=== PATIENT | female | born 1960 | race Hispanic/Latino ===

== ENCOUNTER 2020-06-15 15:42 | Emergency (ER) | payer OTHER ==
[2020-06-15 16:03] VITALS: BP 167/92
--- NOTE | 2020-06-15 16:35 | Event Note ---
ED Screening Note Date of service: 06/15/20 Time: 16:34 ED Screening Note: Patient complains of tremors and allover shakiness x2 days She reports she believes is due to her increase in Wellbutrin from 100 mg to 200 mg which was increased 1 week ago She denies other symptoms This initial assessment/diagnostic orders/clinical plan/treatment(s) is/are subject to change based on patients health status, clinical progression and re- assessment by fellow clinical providers in the ED. Further treatment and workup at subsequent clinical providers discretion. Patient/guardian urged not to elope from the ED as their condition may be serious if not clinically assessed and m anaged. Initial orders include: Labs
[2020-06-15 16:44] LABS: Basophils % (Auto) 0.5 % (0.0-1.8); Eosinophils # (Auto) 0.1 K/mm3 (0.0-0.4); Eosinophils % (Auto) 0.7 % (0.0-4.3); Hemoglobin 12.8 gm/dl (10.1-14.3); Lymphocytes # (Auto) 1.2 K/mm3 (1.2-5.4); Lymphocytes % (Auto) 15.2 % (13.4-35.0); Mean Corpuscular HGB Conc 34 % (30-34); Mean Corpuscular Volume 77 fl (79-97); Monocytes # (Auto) 0.7 K/mm3 (0.0-0.8); Monocytes % (Auto) 9.4 % (0.0-7.3); Platelet Count 383 K/mm3 (140-440); Red Blood Count 4.93 M/mm3 (3.65-5.03); Red Cell Distribution Width 15.9 % (13.2-15.2)
[2020-06-15 17:07] LABS: Albumin 4.8 g/dL (3.9-5); Calcium 9.8 mg/dL (8.4-10.2)
--- NOTE | 2020-06-15 17:26 | Emergency Department Report ---
ED General Adult HPI - General Chief complaint: Medical Clearance Stated complaint: RX REFILL Time Seen by Provider: 06/15/20 16:34 Source: patient Mode of arrival: Ambulatory Limitations: No Limitations - History of Present Illness Initial comments: Patient is a 59-year-old female who presents to the emergency department for evaluation of vertigo, nausea, and tremulousness throughout her body for the past several days which was worse in the past 24 hours. Patient denies fever, but states this feels like when she had Covid several months ago. Patient denies cough or sore throat. Patient denies headache, denies extremity weakness or sensory change. Of note, patient changed Wellbutrin dose from 100 mg to 200 mg shortly before symptom onset. Severity scale (0 -10): 0 - Related Data Allergies Allergy/AdvReac Type Severity Reaction Status Date / Time No Known Allergies Allergy Unverified 06/15/20 15:58 ED Review of Systems ROS: Stated complaint: RX REFILL Other details as noted in HPI Comment: All other systems reviewed and negative ED Past Medical Hx - Past Medical History Previous Medical History?: Yes Hx Hypertension: Yes Additional medical history: Anxiety, prosthetic right eye - Surgical History Additional Surgical History: left knee, right eye - Social History Smoking Status: Never Smoker ED Physical Exam - General Limitations: No Limitations General appearance: alert, in no apparent distress - Head Head exam: Present: atraumatic, normocephalic - Eye Eye exam: Present: normal appearance, other (Right eye prosthesis, no nystagmus) - ENT ENT exam: Present: mucous membranes moist - Neck Neck exam: Present: normal inspection - Respiratory Respiratory exam: Present: normal lung sounds bilaterally. Absent: respiratory distress - Cardiovascular Cardiovascular Exam: Present: regular rate, normal rhythm. Absent: systolic murmur, diastolic murmur, rubs, gallop - GI/Abdominal GI/Abdominal exam: Present: soft, normal bowel sounds - Extremities Exam Extremities exam: Present: normal inspection - Back Exam Back exam: Present: normal inspection - Neurological Exam Neurological exam: Present: alert, oriented X3 - Psychiatric Psychiatric exam: Present: normal affect, normal mood - Skin Skin exam: Present: warm, dry, intact, normal color. Absent: rash ED Course Vital Signs 06/15/20 06/15/20 06/15/20 15:54 16:03 18:00 Temperature 97.8 F Pulse Rate 87 87 Respiratory 18 18 Rate Blood Pressure 167/92 Blood Pressure 167/92 [Right] O2 Sat by Pulse 97 97 100 Oximetry - Reevaluation(s) Reevaluation #1: Patient initially treated with IV NS, IV Reglan for vertigo and nausea Reevaluation #2: 06/15/20 18:46 Despite rehydration and Reglan, patient remains tremulous, given lorazepam 0.5 IV x1. Patient again reiterates the symptoms to be identical to previous Covid infection 4 months ago. Reevaluation #3: 06/15/20 19:08 Patient now notes the symptoms began 24 hours after receiving Covid vaccine 5 days ago Reevaluation #4: 06/15/20 19:24 Patient reevaluated, remains in no acute distress. Now notes her tremors are gone, neuro exam nonfocal. Patient ambulatory with steady gait. Patient offered further hydration in ER, declines. Patient advised to increase hydration at home with electrolyte supplement to beverage, follow-up with primary care physician. ED Medical Decision Making - Lab Data Result diagrams: 06/15/20 16:35 06/15/20 16:35 Vital Signs 06/15/20 06/15/20 06/15/20 15:54 16:03 18:00 Temperature 97.8 F Pulse Rate 87 87 Respiratory 18 18 Rate Blood Pressure 167/92 Blood Pressure 167/92 [Right] O2 Sat by Pulse 97 97 100 Oximetry Lab Results 06/15/20 06/15/20 06/15/20 Range/Units 16:35 16:35 17:51 WBC 7.7 (4.5-11.0) K/mm3 RBC 4.93 (3.65-5.03) M/mm3 Hgb 12.8 (10.1-14.3) gm/dl Hct 38.0 (30.3-42.9) % MCV 77 L (79-97) fl MCH 26 L (28-32) pg MCHC 34 (30-34) % RDW 15.9 H (13.2-15.2) % Plt Count 383 (140-440) K/mm3 Lymph % (Auto) 15.2 (13.4-35.0) % [place] % (Auto) 9.4 H (0.0-7.3) % Eos % (Auto) 0.7 (0.0-4.3) % Baso % (Auto) 0.5 (0.0-1.8) % Lymph # (Auto) 1.2 (1.2-5.4) K/mm3 [place] # (Auto) 0.7 (0.0-0.8) K/mm3 Eos # (Auto) 0.1 (0.0-0.4) K/mm3 Baso # (Auto) 0.0 (0.0-0.1) K/mm3 Seg Neutrophils % 74.2 H (40.0-70.0) % Seg Neutrophils # 5.7 (1.8-7.7) K/mm3 Sodium 128 L (137-145) mmol/L Potassium 4.1 (3.6-5.0) mmol/L Chloride 92.2 L (98-107) mmol/L Carbon Dioxide 23 (22-30) mmol/L Anion Gap 17 mmol/L BUN 9 (7-17) mg/dL Creatinine 1.1 (0.6-1.2) mg/dL Estimated GFR 51 ml/min BUN/Creatinine Ratio 8 % Glucose 125 H (65-100) mg/dL Calcium 9.8 (8.4-10.2) mg/dL Magnesium 2.00 (1.7-2.3) mg/dL Total Bilirubin 0.90 (0.1-1.2) mg/dL AST 17 (5-40) units/L ALT 27 (7-56) units/L Alkaline Phosphatase 53 (35-129) units/L Troponin T < 0.010 (0.00-0.029) ng/mL Total Protein 6.7 (6.3-8.2) g/dL Albumin 4.8 (3.9-5) g/dL Albumin/Globulin Ratio 2.5 % - EKG Data -: EKG Interpreted by Me (Sinus rhythm at 74, no ST-T changes, normal QRS) - Radiology Data Print Report Referring Physician: АЛЕКСАНДР KENNEDY Patient Name: GLYNN ASHER Date of : 1960 Sex: Female Report Date: 2020-06-15 Report Status: Finalized Findings [facility] [address] [place] [address] Cat Scan Report Signed Patient: GLYNN ASHER MR#: [id number] : 1960 Acct:[id number] Age/Sex: 59 / F ADM Date: 06/15/20 Loc: ED Attending Dr: Ordering Physician: АЛЕКСАНДР KENNEDY MD Date of Service: 06/15/20 Procedure(s): CT head/brain wo con Accession Number(s): [id number] cc: АЛЕКСАНДР KENNEDY MD CT head/brain wo con INDICATION / CLINICAL INFORMATION: 59 years Female; vertigo. TECHNIQUE: Routine CT head without contrast. All CT scans at this location are performed using CT dose reduction for ALARA by means of automated exposure control. COMPARISON: None. FINDINGS: BRAIN / INTRACRANIAL CONTENTS: The brain appears to demonstrate appropriate attenuation for age. The ventricular system is within normal limits in size and configuration. There is no clear CT evidence of acute intracranial hemorrhage or significant mass effect. ORBITS: There are postsurgical changes involving the right orbit. SINUSES / MASTOIDS: No significant abnormality in the visualized paranasal sinuses or mastoid air cells. CRANIOCERVICAL JUNCTION: No significant abnormality. ADDITIONAL FINDINGS: None. IMPRESSION: 1. There is no CT evidence of acute intracranial process. Signer Name: Farhan Guzman MD Signed: 06/15/2020 7:05 PM Workstation Name: [id number] Transcribed By: MR Dictated By: Farhan Guzman MD Electronically Authenticated By: Farhan Guzman MD Signed Date/Time: 06/15/201904 DD/ 00 TD/TT: Critical care attestation.: If time is entered above; I have spent that time in minutes in the direct care of this critically ill patient, excluding procedure time. ED Disposition Clinical Impression: Dehydration, Dizziness, Nausea Disposition: DC-01 TO HOME OR SELFCARE Is pt being admited?: No Condition: Stable Instructions: Nausea, Adult, Dehydration, Adult, [id number], Dizziness Referrals: PRIMARY CARE, [Primary Care Provider] - 3-5 Days - Assessment Assessment Interval: Baseline - Level of Consciousness 1a. Level of Consciousness: alert/keenly responsive - LOC Questions 1b. LOC Questions: answers both correctly - LOC Command 1c. LOC Commands: performs tasks correctly - Best Gaze 2. Best Gaze: normal - Visual 3. Visual: no visual loss - Facial Palsy 4. Facial Palsy: normal symmetrical movement - Motor Arm 5a. Motor Arm Left: no drift 5b. Motor Arm Right: no drift - Motor Leg 6a. Motor Leg Left: no drift 6b. Motor Leg Right: no drift - Limb Ataxia 7. Limb Ataxia: absent - Sensory 8. Sensory: normal - Best Language 9. Best Language: no aphasia - Dysarthria 10. Dysarthria: normal - Extinction and Inattention 11. Extinction/Inattention: no abnormality - Scoring Total Score: 0 Stroke Severity: No Stroke Symptoms
[2020-06-15] MEDS ORDERED: METOCLOPRAMIDE 10 MG/2 ML INJ IV ONE (17:45)
[2020-06-15] MEDS ORDERED: SODIUM CHLORIDE 0.9% 1000 ML 1,000 ML IV ONE (17:45)
--- NOTE | 2020-06-15 18:17 | XRay Report ---
CHEST 1 VIEW 06/15/2020 5:51 PM INDICATION / CLINICAL INFORMATION: weakness. COMPARISON: None available. FINDINGS: SUPPORT DEVICES: None. HEART / MEDIASTINUM: No significant abnormality. LUNGS / PLEURA: No significant pulmonary or pleural abnormality. No pneumothorax. ADDITIONAL FINDINGS: No significant additional findings. IMPRESSION: 1. No acute findings. Signer Name: Fred Britton MD Signed: 06/15/2020 6:12 PM Workstation Name: [id number]
[2020-06-15] MEDS ORDERED: LORazepam 2 MG/ML VIAL IV ONE (18:45)
--- NOTE | 2020-06-15 19:09 | Cat Scan Report ---
CT head/brain wo con INDICATION / CLINICAL INFORMATION: 59 years Female; vertigo. TECHNIQUE: Routine CT head without contrast. All CT scans at this location are performed using CT dos e reduction for ALARA by means of automated exposure control. COMPARISON: None. FINDINGS: BRAIN / INTRACRANIAL CONTENTS: The brain appears to demonstrate appropriate attenuation for age. The ventricular system is within normal limits in size and configuration. There is no clear CT evidence o f acute intracranial hemorrhage or significant mass effect. ORBITS: There are postsurgical changes involving the right orbit. SINUSES / MASTOIDS: No significant abnormality in the visualized paranasal sinuses or mastoid air tracy ls. CRANIOCERVICAL JUNCTION: No significant abnormality. ADDITIONAL FINDINGS: None. IMPRESSION: 1. There is no CT evidence of acute intracranial process. Signer Name: Farhan Guzman MD Signed: 06/15/2020 7:05 PM Workstation Name: [id number]
== END 2020-06-15 19:53 | disposition home or self-care (01) ==
LOC: ED 15:42
DX: E86.0 Dehydration (principal); R11.0 Nausea; I10 Essential (primary) hypertension; F41.9 Anxiety disorder, unspecified; Z98.890 Other specified postprocedural states
CPT/HCPCS: 36415; 70450; 71045; 80053; 83735; 84484; 85025; 93005; 96361; 96374; 96375; 99284; J2060; J2765; J7030